=== PATIENT | male | born 1990 | race Two or more races ===

== ENCOUNTER 2022-09-13 04:16 | Day surgery (SDC) | payer OTHER ==
[2022-09-07 16:31] VITALS: BMI 29.2
[2022-09-13] MEDS ORDERED: FENTANYL CITRATE/PF 50 MCG/ML VIAL ONE ×3 (13:30→15:21)
[2022-09-13] MEDS ORDERED: MIDAZOLAM HCL 2 MG/2 ML SINGLE DOSE VIAL ONE (13:30)
[2022-09-13] MEDS ORDERED: ceFAZolin SODIUM 1 GM VIAL ONE (13:56)
[2022-09-13] MEDS ORDERED: LIDOCAINE HCL/PF 2% SDV 5ML VIAL ONE ×2 (13:56→14:14)
[2022-09-13] MEDS ORDERED: PROPOFOL 20 ML ONE (14:00)
[2022-09-13] MEDS ORDERED: LIDOCAINE HCL/PF 2% SDV 5ML VIAL INF ONE (14:04)
[2022-09-13] MEDS ORDERED: ONDANSETRON 4 MG/2 ML VIAL ONE (14:14)
[2022-09-13 15:47] VITALS: RESP 18
[2022-09-13 17:20] VITALS: BP 113/72; PULSE 69; TEMP 97.9
== END 2022-09-13 17:10 | disposition home or self-care (01) ==
LOC: JASU-SURG 04:16
PROVIDERS: ATTEND Urology
PROC: 0VB Male Reproductive System, Excision (ICD-10-PCS; 2022-09-13)
PROC: 0VB Male Reproductive System, Excision (ICD-10-PCS; principal; 2022-09-13 13:30)
DX: N46.01 Organic azoospermia (principal)
CPT/HCPCS: 88307-TC; 94760

== ENCOUNTER 2023-03-23 20:01 | Emergency (ER) | payer OTHER ==
[2023-03-23 20:14] VITALS: BP 112/69; PULSE 87; RESP 18; TEMP 98.2; BMI 29.2
[2023-03-23] MEDS ORDERED: DEXAMETHASONE LIQUID 0.5 MG/5 ML PO ONE (20:47)
[2023-03-23] MEDS ORDERED: KETOROLAC TROMETHAMINE 30 MG/1 ML VIAL IM ONE (20:47)
[2023-03-23] MEDS ORDERED: KETOROLAC TROMETHAMINE 30 MG/1 ML VIAL ONE (21:03)
[2023-03-23] MEDS ORDERED: DEXAMETHASONE SOD PHOSPHATE 10 MG/1 ML VIAL ONE (21:04)
== END 2023-03-23 21:49 | disposition home or self-care (01) ==
LOC: JERFT 20:01
PROC: 3E0233Z Introduction of Anti-inflammatory into Muscle, Percutaneous Approach (ICD-10-PCS; principal; 2023-03-23)
DX: J02.0 Streptococcal pharyngitis (principal); R59.1 Generalized enlarged lymph nodes
CPT/HCPCS: 96372; 99284-25